=== PATIENT | female | born 1960 | race Caucasian/White ===

== ENCOUNTER 2016-04-12 07:13 | Day surgery (SDC) | payer OTHER ==
[~2016-04-12] VITALS: Ht 162.6 cm; Wt 114.1 kg
[2016-04-12] VITALS (9 sets, daily range): BP systolic 109–141; BP diastolic 70–89; PULSE 62–70; RESP 12–16; O2SAT 97–100
[~2016-04-12 07:13] MED LIST: BIOT10003 PO; CHOL10008 PO; CYAN50008 PO; HYDR25TA4 PO; KRIL1CAP10 PO; LISI-567 PO; Lactated Ringer's 1,000 ML IV SCH; Levofloxacin 500 mg/100 mL D5W IV ONE; Mitomycin Inj 40 MG in Syringe 1 EACH IRRIGATION ONE; UBID1CAP58 PO; [UNRECOGNIZED DRUG - CODE] MM
[2016-04-12] MEDS ORDERED: Ondansetron 2 mg/mL 2 mL Inj ONE (07:14)
[2016-04-12] MEDS ORDERED: EPHEDrine/NS 5 mg/mL 5 mL Syringe ONE (07:14)
[2016-04-12] MEDS ORDERED: fentaNYL-PF 50 mCg/mL 2 mL Inj ONE (07:14)
[2016-04-12] MEDS ORDERED: Phenylephrine/NS-PF 100 mCg/mL 5 mL Syringe IVPUSH ONE (07:14)
[2016-04-12] MEDS: Lactated Ringer's 1,000 ML IV SCH ×2 (07:31→09:05)
[2016-04-12] MEDS ORDERED: ALPR0.25 PO (08:04)
[2016-04-12] MEDS ORDERED: Lactated Ringer's 500 ML IV PRN (10:09)
[2016-04-12] MEDS ORDERED: Lactated Ringer's 1,000 ML IV SCH (10:09)
[2016-04-12] MEDS ORDERED: Ondansetron 2 mg/mL 2 mL Inj IVPUSH PRN (10:10)
[2016-04-12] MEDS ORDERED: HYDROmorphone 1 mg/mL Inj IVPUSH PRN (10:10)
[2016-04-12] MEDS ORDERED: Dexamethasone 4 mg/mL Inj IVPUSH PRN (10:10)
[2016-04-12] MEDS ORDERED: Phenylephrine 10,000 mCg/mL Inj IVPUSH PRN (10:10)
[2016-04-12] MEDS ORDERED: EPHEDrine Sulfate 50 mg/mL Inj IVPUSH PRN (10:10)
[2016-04-12] MEDS ORDERED: fentaNYL-PF 50 mCg/mL 2 mL Inj IVPUSH PRN (10:10)
[2016-04-12] MEDS ORDERED: MetoCLOpramide 5 mg/mL 2 mL Inj IVPUSH PRN (10:10)
--- NOTE | 2016-04-12 10:10 | PCM.HPANE ---
Patient Data Surgeon Admitting Provider: Attending Provider:Zafar Ott MD Primary Care Physician:Tiara Diane MD Other Provider: Reason for Visit Bladder Tumor Ht/WT & BMI Height (Feet): 5 Height (Inches): 4 Weight (Kilograms): 114.1 Body Mass Index 42.00 Allergies Coded Allergies: Penicillins (Verified Allergy, Unknown, abdominal pain, 03/28/16) amoxicillin (Verified Allergy, Unknown, 03/28/16) clavulanic acid (Verified Allergy, Unknown, 03/28/16) methylergonovine (Verified Allergy, Unknown, anaphylaxis, 03/28/16) Uncoded Allergies: FLU VACCINE (Allergy, Unknown, 03/28/16) Past Anesthesia History Anesthesia History: Denies:: Abnormal Airway, Anesthesia Reactions (nausea/ vomiting post anes ), Difficult Intubation, Fam Anesthesia Reaction Diabetes History Hx Diabetes?: No MRSA MRSA: Yes (2010, hand and rectal) Medications Hypertension Medication: Yes Home Meds Incl Beta Lor: No Reported Medications Alprazolam (Xanax)0.25 Mg Tablet0.25 Mg PO TID PRN For Anxiety Ref 0 04/12/16 Cholecalciferol (Vitamin D3) (Vitamin D3)1,000 Unit Tab.chew1,000 Unit PO DAILY 03/28/16 Cyanocobalamin (Vitamin B-12) (Vitamin B12)5,000 Mcg Tab.rapdis5,000 Mcg PO DAILY 03/28/16 Lisinopril 20 Mg Ntftrs20 Mg PO DAILY 30 Days Ref 0 03/28/16 Hydrochlorothiazide 25 Mg Jgopiw27 Mg PO DAILY 30 Days Ref 0 03/28/16 Flaxseed (Numoisyn)300 Ml Liquid1 Tbs MM DAILY 03/28/16 Ubidecarenone/Vitamin E Mixed (Wnz28-Prg E 100 mg-10 Unit Sfg)100 Mg-10 Unit Capsule2 Each PO DAILY 03/28/16 Biotin 10,000 Mcg Capsule5,000 Mcg PO DAILY 03/28/16 Discontinued Reported Medications Krill Oil/[place]-3/Dha/Epa (Fish Oil with Krill Softgel)1 Each Capsule.dr1 Each PO DAILY 03/28/16 History HEENT History: Denies:: Abnormal Airway Cataracts Difficult Intubation Dysphagia Glaucoma Hearing Problem Sinus Problem TMJ Other HEENT Pertinent History: back molar has appt to be removed "dont believe it is abscessed" Hx of Heart Problems?: Yes Cardiovascular History: Positive for:: Heart Murmur (poss as child) Hypertension Denies:: AICD Atrial Fibrillation Chest Pain Congestive Heart Failure Coronary Artery Disease Edema Pacemaker Peripheral Vascular Rheumatic Fever Respiratory History: Positive for:: Pneumonia (hx of 2010) Denies:: Asthma COPD Emphysema Oxygen Administration Tuberculosis Use of C-PAP Machine Use of Inhalers / NEBS Hx Neurologic Problems?: Yes Neurological History: Positive for:: Headaches Denies:: Alzheimer's Disease CVA Dementia Dizziness Multiple Sclerosis Parkinson's Disease Seizures TIA Hx of GI Problems?: Yes Gastrointestinal History: Positive for:: Gastroesphageal Reflux Gastrointestinal Bleeding (gastric ulcer hx - per barium swallow only- no egd ) Denies:: Cirrhosis Diverticulitis Gall Bladder Disease Heartburn Hepatitis Hiatal Hernia Liver Disease Rectal Bleeding Other GI Pertinent History: hx of lap band- decompressed Hx of Problems?: Yes Genitourinary History: Denies:: Kidney Stones Urinary Tract Infection Other Pertinent History: bladder tumor current admission problem Female Hx: Denies:: Currently (tubal ligation) Problems with Breasts? Skin History: Denies:: History Skin Disorders? Pressure Ulcers Hx Musculoskeletal Problems?: Yes Musculoskeletal History: Positive for:: Back Injury (chronic neck problems - left hand numb) Osteoarthritis (self diagnosed ankle since fx) Denies:: Fibromyalgia Joint Replacement Musculoskeletal Trauma Myasthenia Gravis Rheumatoid Arthritis Systemic Lupus Hx of Psycho/Social Problems?: Yes Psycho Social History: Positive for:: Anxiety Hx Depression Hx Surgeries?: Yes (lap band, decompression) Hx Any Other Health Problems?: Yes Other History: Denies:: Cancer Thyroid Disease History Blood Transfusions: Positive for:: Blood Transfusions Denies:: Accept Blood Products? Blood Transfuse Reaction Hx Diabetes: No Hx Alcohol Use: NoHx Substance Use: No (tried edibles- not consistent use) Have You Smoked inLast 12 mo: No Stop/Bang S-Snoring: Do You Snore Loudly: No T-Tired: feel tired, fatigued: Yes O-Obsered: Observed not breath: No P-Blood Pressure: treated: Yes B- Body Mass Index > 35 kg/m2: Yes A- Age over 50: Yes N- Neck Large Circumference: Yes G- Gender Male: No CESAR Total Score: 5 Risk Assessment Category Category 1A: Patient has history of documented sleep apnea, and HAS NOT received any narcotic, sedative or anesthesia administration during this stay. Category 1B: Patient has history of documented sleep apnea, and HAS received any narcotic , sedative or anesthesia administration during this stay Category 2: Patient has SUSPECTED Obstructive Sleep Apnea, and HAS received any narcotic , sedative or anesthesia administration during this stay. Category 3: Patient has SUSPECTED Obstructive Sleep Apnea and HAS NOT received narcotic, sedative or anesthesia administration during this stay. Category 4: Outpatient in Procedural Areas with known sleep apnea or who screen positive for High Risk via the STOP/BANG questionnaire. Exam Exam Vital Signs Vital Signs Date Time Temp Pulse Resp B/P Pulse Ox O2 Delivery O2 Flow Rate FiO2 04/12/16 07:46 36.2 70 16 141/84 99 Room Air General Appearance: Alert, Oriented X3, Cooperative, No Acute Distress HEENT/AIRWAY: MP 2 Lungs: Clear to Auscultation Heart: Exam Unremarkable Meds/Labs/Diagnostics Admission Meds Current Medications Lactated Ringer's (Lr) 1,000 ml @ 120 mls/hr Q8H20M IV Last administered on t 07:31; Start 04/12/16 at 05:00; Stop 04/12/16 at 13:19 Plan Impression Patient chart reviewed, patient interviewed and anesthestic plan with risks, benefits, and alternatives discussed, and informed consent obtained. NPO Status: 04/12/16 MIDNIGHT WATER ASA Physical Status: ASA2 Mod Systemic Disease Anesthetic Plan: GA Bene/Risks/Altern/Consents: Yes HP Complete Prior to Induction: Yes Bassam Harrell MD Apr 12, 2016 07:54
[2016-04-12] MEDS ORDERED: Belladonna Alk-Opium 60 mg Rectal Suppository RECTAL ONE ×2 (10:13→10:20)
[2016-04-12] MEDS ORDERED: Lactated Ringer's 1,000 ML IV ONE (10:16)
--- NOTE | 2016-04-12 10:59 | PCM.SURGPO ---
Immediate Operative Note Date of Surgery: Apr 12, 2016 Pre Operative Diagnosis Bladder tumor Post Operative Diagnosis Bladder tumor Procedure Cystoscopy, transurethral resection of bladder tumor (2-5cm), and Mitomycin intravesical instillation Surgeon and Production Cell Leader Surgeon: Zafar Ott MD Assistants: None Findings Cystoscopy revealed an approx. 3cm papillary bladder tumor on R trigone ( approx. 1cm posterior to R ureteral orifice). Transurethral resection of bladder tumor was performed using bipolar loop electrocautery. B/L ureteral orifices were seen to be intact and well-preserved at the end of the case. Mitomycin intravesical instillation performed at the end of the case. Complications There were no periprocedural complications identified. Surgical Specimen Removed: Yes Specimen sent to Pathology: Yes Surgical Specimen description: R trigone bladder tumor - superficial, R trigone bladder tumor - deep Anesthetic Administered: GA Grafts, Implants: Other (18F Verdugo catheter clamped) Output, Estimated Blood Loss: <5 Blood Admin during surgery: No Additional information Patient to be discharged home with Verdugo when stable, to return to see me in 5- 6 days for post-op visit and trial of void. Zafar Ott MD Apr 12, 2016 10:59
[2016-04-12] MEDS ORDERED: HYDROcodone-APAP 10-325 mg PO ONE (11:10)
--- NOTE | 2016-04-12 11:11 | PCM.DISURG ---
Surgical Discharge Instruction Date of Service Apr 12, 2016 Dates of Hospitalization Date of Hospital Admission Apr 12, 2016 Providers Admitting Physician: Zafar Ott MD Primary Care Physician: Tiara Diane MD Attending Physician: Zafar Ott MD Discharge Diagnosis Discharge Diagnosis Bladder tumor Post Operative diagnosis Bladder tumor Diet Discharge Diet: No restrictions, Other (Increase fluid intake to at least 10- 12 8oz. glasses (3 liters) of fluids per day as long as there is blood in the urine) Activity Discharge Activity-General: No restrictions, No driving while taking narcotic Dressing and Incisional Care Hygiene: May shower Follow Up Plan Follow-up Provider (F9): Zafar Ott MD Follow-up appointment: Days (5-6 days for post-op visit and trial of void (AM appt.)) Call your provider for: Fever, Chills, Vomiting, Other (Pain uncontrolled by pain medications, non-draining Verdugo catheter) Zafar Ott MD Apr 12, 2016 11:11
[2016-04-12] MEDS ORDERED: HYDROcodone-APAP 10-325 mg PO PRN (11:25)
--- NOTE | 2016-04-12 11:31 | PCM.ANEP1 ---
Post Anesthesia Phase 1 PACU Phase 1 Assessment Date of Service: Apr 12, 2016 Vital Signs Vital Signs Date Time Temp Pulse Resp B/P Pulse Ox O2 Delivery O2 Flow Rate FiO2 04/12/16 11:15 35.7 70 12 137/75 97 04/12/16 11:05 36.0 68 12 125/72 100 Room Air 04/12/16 11:00 65 12 127/81 100 Room Air 04/12/16 10:55 62 12 129/71 100 Room Air 04/12/16 10:50 66 12 127/75 100 Room Air 04/12/16 10:45 36.1 66 14 128/71 100 Room Air 04/12/16 10:41 66 14 109/70 100 Room Air 04/12/16 07:46 36.2 70 16 141/84 99 Room Air Anesthetic Administered: GA Level of Alertness: Awake, talking SHAFER's with Equal Strength: Yes Pain: No Nausea or Vomiting: No Oxygen Delivery: Room Air Lungs: Clear to Auscultation Dermatome Level: Full Sensation Bassam Harrell MD Apr 12, 2016 11:31
--- NOTE | 2016-04-12 11:31 | PCM.ANEP2 ---
Post Anesthesia Evaluation ASA/CMS Post Anesthesia VS in Patient's Normal Range?: Yes Resp Stable; Airway Patent?: Yes CV Function & Hydration Stable: Yes Mental Status Recovered?: Yes Pain control Satisfactory?: Yes N/V Control Satisfactory?: Yes Bassam Harrell MD Apr 12, 2016 11:31
--- NOTE | 2016-04-12 18:39 | OP ---
[address] [address] OPERATIVE REPORT PATIENT: TABITHA CASTILLO : 1960 MR#: [id number] ADMIT: 04/12/2016 JOB ID: [id number] DATE OF SURGERY: 04/12/2016 PREOPERATIVE DIAGNOSIS(ES): Bladder tumor. POSTOPERATIVE DIAGNOSIS(ES): Bladder tumor. PROCEDURE: Cystoscopy, transurethral resection of bladder tumor (2-5 cm), and Mitomycin intravesical instillation. SURGEON: Zafar Ott MD SALON DESIGNER: None. ANESTHESIA: General. ESTIMATED BLOOD LOSS: Less than 5 mL. SPECIMENS: Right trigone bladder tumor - superficial, right trigone bladder tumor - deep. DRAINS: An 18-Malawian Verdugo catheter, clamped. COMPLICATION: None. CONDITION: Stable. FINDINGS: Cystoscopy revealed an approximately 3 cm papillary bladder tumor on the right trigone (approximately 1 cm posterior to the right ureteral orifice). Transurethral resection of the bladder tumor was performed using bipolar loop electrocautery. Bilateral ureteral orifices were seen to be intact and well-preserved at the end of the case. Mitomycin intravesical instillation was performed at the end of the case. INDICATIONS: This patient is a 56-year-old female with a bladder tumor found on office cystoscopy. The patient now presents for cystoscopy, transurethral resection of bladder tumor, possible right ureteral stent placement, and Mitomycin intravesical instillation. DESCRIPTION OF PROCEDURE: The patient was brought to the operating room and placed supine on the operating room table. The patient was given Levaquin IV antibiotics. Sequential compression device boots were placed. General anesthesia was administered. The patient was brought down into dorsal lithotomy position. The patient was prepped and draped in standard surgical fashion. A 26-Malawian continuous flow resectoscope was placed into the urethra without difficulty. Cystoscopy revealed normal urethra, bilateral ureteral orifices in normal position, and an approximately 3 cm papillary bladder tumor on the right trigone (approximately 1 cm posterior to the right ureteral orifice) and no bladder calculi. The bladder tumor was resected in its entirety using bipolar loop electrocautery. The bladder tumor was sent to pathology for permanent specimen. The base of the bladder tumor resected area, including normal surrounding bladder mucosa, was fulgurated using bipolar loop electrocautery. Excellent hemostasis was achieved. No evidence for bladder perforation was seen. Bilateral ureteral orifices were seen to be intact and well-preserved at the end of the case. The continuous-flow resectoscope was removed from the patient. An 18-Malawian Verdugo catheter was placed through the urethra and into the bladder without difficulty. The Verdugo catheter balloon was inflated with 10 mL of sterile water. The Verdugo catheter was initially placed to straight drainage and the bladder was allowed to drain completely via the Verdugo catheter. Then Mitomycin intravesical instillation was performed by instilling the Mitomycin solution into the bladder via the Verdugo catheter. The Verdugo catheter was clamped. The skin was cleaned and dried. The patient was placed in supine position. The patient was awakened from general anesthesia and transferred to the recovery room in stable condition. The patient tolerated the procedure well. The Verdugo catheter was unclamped after a period of 1 hour while the patient was in the recovery room and the Mitomycin was allowed to drain out of the patient's bladder; thus, Mitomycin intravesical instillation was performed for 1 hour. The postoperative plan is for the patient to be discharged home with the Verdugo catheter when stable and for the patient to return to see me in the office in 5-6 days for a postoperative visit and trial of void. RENZO
--- NOTE | 2016-04-13 16:09 | PATH ---
SURGICAL PATHOLOGY Attending Physician:Zafar Ott MD CASE STATUS: Signed Out PATIENT NAME: TABITHA CASTILLO PID: [id number] : 1960 DATE COLLECTED:04/12/2016 15:21 SPECIMEN: 1: Bladder, Biopsy 2: Bladder, Biopsy CLINICAL HISTORY: BLADDER TUMOR 1). BLADDER TUMOR RIGHT TRIGONE SUPERFICIAL 2). BLADDER TUMOR RIGHT TRIGONE DEEP FINAL DIAGNOSIS: 1. Bladder Tumor, Right Trigone Superficial: Low-grade papillary urothelial carcinoma, non-invasive. No muscularis propria is present in the biopsy. 2. Bladder Tumor Right Trigone Deep: Low-grade papillary urothelial carcinoma, non-invasive. Muscularis propria is present in the biopsy and is uninvolved by tumor. CAP SYNOPTIC REPORT Urinary Bladder: Procedure: Biopsy. Tumor type: Non-invasive carcinoma. Histologic type: Urothelial (transitional cell) carcinoma. Associated epithelial lesions: None identified. Histologic grade: Low grade. Tumor configuration: Papillary. Adequacy of material for determining muscularis propria invasion: Muscularis propria (detrusor muscle) present. Lymph-vascular invasion: Not identified. Microscopic tumor extension: Non-invasive papillary carcinoma. ICD10 C67.0 NOTE: As part of routine quality control tech raw materials, this case was reviewed by Dr. Alma Rosa Lynne, who concurs with the diagnosis. GROSS DESCRIPTION: The specimen is received in two formalin filled containers labeled with the patient's name. 1). The specimen is sublabeled "bladder tumor right trigone-superficial" and consists of multiple portions of tissue which aggregate to 2.0 x 1.2 x 0.5 CM. The specimen is entirely submitted in cassettes 1A, 1B. 2). The specimen is sublabeled "bladder tumor right trigone deep" and consists of multiple portions of tissue which aggregate to 1.5 x 1.0 x 0.4 CM. The specimen is entirely submitted in cassette 2A. 04/12/2016 [facility] MICRO DESCRIPTION: Please see diagnosis. ICD-9 CODES: CPT CODES: 1: 34675 2: 59162 PROCEDURE/ADDENDA: Addendum SPI Addendum Diagnosis {Not Entered} Addendum Comment This case was discussed with Dr. Ott on 04/17/16. There is no lamina propria invasion in either of these biopsies. Electronically Signed Out Alma Rosa Lynne MD Electronically Signed Out Annette Osorio MD [facility] [address], [place] [address] Technical component performed at [facility], [address], [place], [address]
== END 2016-04-12 23:59 | disposition home or self-care (01) ==
LOC: SAS 07:13
PROVIDERS: ATTEND Urology
DX: C67.0 Malignant neoplasm of trigone of bladder (principal); I10 Essential (primary) hypertension; Z86.14 Personal history of Methicillin resistant Staphylococcus aureus infection; Z98.84 Bariatric surgery status
CPT/HCPCS: 52235; J2370; J2405; J3010; J7120; J9280

== ENCOUNTER 2016-07-10 12:00 | Day surgery (SDC) | payer OTHER ==
[~2016-07-10] VITALS: Ht 165.1 cm; Wt 112.0 kg
[~2016-07-10 12:00] MED LIST changes: +0.9% Sodium Chloride 1,000 ML IV SCH; +ALPR0.25 PO; -KRIL1CAP10 PO; +Lactated Ringer's 1,000 ML IV ONE; -Lactated Ringer's 1,000 ML IV SCH; -Levofloxacin 500 mg/100 mL D5W IV ONE; -Mitomycin Inj 40 MG in Syringe 1 EACH IRRIGATION ONE; +Sodium Chloride LOK Flush 10 mL Syringe IV PRN; +fentaNYL-PF 50 mCg/mL 2 mL Inj IVPUSH PRN
[2016-07-10 12:59] VITALS: BP 136/85; PULSE 83; RESP 16; O2SAT 98
[2016-07-10 14:09] VITALS: BP 137/87; PULSE 62; RESP 14; O2SAT 99
--- NOTE | 2016-07-10 14:09 | PCM.ENDCOL ---
Colonoscopy Date of Service: July 10, 2016 Physician Octavio Winchester MD Pre Procedure Diagnosis: Screening family history of colon polyp Post Procedure Dx & Findings: Hemorrhoids diverticuli Procedure Colonoscopy PROCEDURE IN DETAIL: Prep adequate. Withdrawal time 9 minutes After unremarkable rectal examination the Olympus video colonoscope was inserted patient's anal canal and was advanced to cecum. Landmarks were identified including the ileocecal valve and appendiceal orifice. Scope was withdrawn systematically. Visualized colonic mucosa showed healthy shiny mucosa with normal healthy-appearing vasculature. There were several small diverticuli in the sigmoid colon. In the rectum retroflexion was done which showed hemorrhoids. Anal canal was inspected carefully on the way out and hemorrhoids noted. Impression Diverticuli Family history of colon polyp Hemorrhoids Recommendation Repeat colonoscopy 5 years Diverticula diet Presedation Assessment Risks and Benefits Informed consent was obtained from the patient after all risks and benefits including but not limited to drug reaction, infection, pain, bleeding, perforation, as well as alternatives were discussed. Patient monitoring Continuous pulse oximetry, cardiac monitoring, blood pressure monitoring, IV access, and oxygen at 2L per nasal cannula. Periprocedural Fentanyl: Fentanyl 150mcg Incrementally Midazolam: Midazolam 6mg Incrementally Complications There were no periprocedural complications identified. Post Procedure Plan Post Procedure Recommendations 1. Restrict activities today. 2. Resume normal activities in the morning. 3. Resume medications. 4. Patient informed of normal post procedure side effects as bloating, drowsiness, blood streaking in the stool. 5. average risk CRCS. If colon polyps come back as: -Hyperplastic- can repeat colonoscopy in 10 years -Tubular adenoma- repeat colonoscopy in 5 years -Tubulovillous/villous adenoma- repeat colonoscopy in 3 years -If any dysplasia- return to clinic as soon as possible 6. Please don't hesitate to call me with any questions. Octavio Winchester MD July 10, 2016 14:09
[2016-07-10 14:18] VITALS: BP 146/81; PULSE 60; RESP 14; O2SAT 98
== END 2016-07-10 23:59 | disposition home or self-care (01) ==
LOC: END 12:00
PROVIDERS: ATTEND Internal Medicine
DX: Z12.11 Encounter for screening for malignant neoplasm of colon (principal); K57.30 Diverticulosis of large intestine without perforation or abscess without bleeding; K64.8 Other hemorrhoids; I10 Essential (primary) hypertension; Z83.71 Family history of colonic polyps; Z79.899 Other long term (current) drug therapy
CPT/HCPCS: 45378; G0500; J7030